=== PATIENT | male | born 1995 | race Caucasian/White ===

== ENCOUNTER 2017-10-14 17:03 | Emergency (ER) | payer SELFPAY ==
[2017-10-14] MEDS ORDERED: ONDANSETRON 4 MG/2 ML VIAL ONE (17:18)
[2017-10-14 17:37] VITALS: BP 109/69; PULSE 98; TEMP 97.6; BMI 22.1
--- NOTE | 2017-10-14 18:27 | PDOC ---
History of Present Illness - General Chief Complaint: Overdose Stated Complaint: Overdose Time Seen by Provider: 10/14/17 17:46 - History of Present Illness Initial Comments: 10/14/17 18:25 Patient is a 22 yo with a PMHx of polysubstance abuse (IV heroine, cocaine), IDDM, was brought in by ambulance for somnolence and tachycardia of 170 [place]. He injected himself with heroine and his brother became worried when he "became incoherent" and called 911. Patient did not require reversal with narcan. Patient has been injecting heroine since he was 15 years old and says he's currently in rehab. Patient denies LOC, dyspnea, chest pain, dizziness, abdominal pain, nausea and vomiting. Past History - Past Medical History Allergies/Adverse Reactions: Allergies Allergy/AdvReac Type Severity Reaction Status Date / Time No Known Allergies Allergy Verified 10/14/17 17:06 COPD: No - Suicide/Smoking/Psychosocial Hx Smoking History: Never smoked Hx Alcohol Use: No Drug/Substance Use Hx: Yes (heroine) Substance Use Type: Cocaine, Heroin Review of Systems - Review of Systems Constitutional: No: Chills, Diaphoresis, Fever HEENTM: No: Recent change in vision Respiratory: No: Cough, Shortness of Breath, Wheezing Cardiac (ROS): No: Chest Pain, Edema, Palpitations, Syncope ABD/GI: No: Diarrhea, Nausea : No: Burning, Dysuria Neurological: No: Headache, Numbness, Tremors *Physical Exam - Vital Signs Last Vital Signs Temp Pulse Resp BP Pulse Ox 97.6 F 98 H 18 109/69 10/14/17 17:14 10/14/17 17:14 10/14/17 17:14 10/14/17 17:14 - Physical Exam Comments: 10/14/17 18:53 General: patient in no acute distress, appears comfortable HEENT: oropharaynx clear without exudates CV: RRR, no murmurs, rubs or gallops Lungs: CTA b/l, no rales rhonchi or wheezing Abd: normoactive bowel sounds, nt, nd Ext: track melchor on b/l upper extremity, linear maculopapulo rash on left shoulder that extends down to left flank. B/l LE excoriations Medical Decision Making - Medical Decision Making 10/14/17 18:50 Patient is a 22 yo M with a history of polysubstance abuse (heroine, cocaine) presented to the ED after brother found him unconscious after using Heroine. Patient is not hypoxic and in not in respiratory distress. Tachycardia resolved. BGM 198 Hemodynamically stable 100% Sat on room air Will discharge patient under care of his mother. *DC/Admit/Observation/Transfer Diagnosis at time of Disposition: Heroin overdose Qualifiers: Encounter type: initial encounter Injury intent: undetermined intent Qualified Code(s): T40.1X4A - Poisoning by heroin, undetermined, initial encounter - Discharge Dispostion Disposition: HOME Admit: No - Referrals - Patient Instructions Printed Discharge Instructions: DI for Drug Overdose in Adults Additional Instructions: If you feel worsening of your symptoms please call your doctor. If it is an emergency, go to your nearest emergency department. - Post Discharge Activity
--- NOTE | 2017-10-14 18:44 | PDOC ---
Attending Attestation - Resident Resident Name: Josephine Ordonez - ED Attending Attestation I have performed the following: I have examined & evaluated the patient, The case was reviewed & discussed with the resident, I agree w/resident's findings & plan, Exceptions are as noted - HPI HPI: 10/14/17 19:13 22-year-old male with history of heroin abuse, insulin-dependent diabetes brought into the ER for somnolence after injecting IV heroin. Patient did not require reversal with Narcan prior to arrival. - Physicial Exam PE: 10/14/17 19:14 Patient is awake and alert, Ox3 nc, atr perrla (3mm) cta rrr + Numerous track melchor to the left upper extremity; - Medical Decision Making 10/14/17 19:12 Patient is a 22-year-old male with history of heroin abuse, insulin-dependent diabetes brought in by EMS for somnolence and tachycardia [place]. Patient did not require reversal with Narcan and has remained asymptomatic in the ER without evidence of respiratory depression. BGM is noted to be 198. Patient's initial heart rate of 170 resolved without any intervention and last heart rate was noted to be 108. Patient did not wish detox. Patient discharged to the care of his mother. <Goldy Roth - Last Filed: 10/14/17 19:12> - HPI HPI: 10/14/17 19:17 Pt is a 22 yo M with a PMHx of polysubstance abuse, IDDM who presents to the ED with AMS s/p heroin use. Patient's brother call EMS due to AMS. - Medical Decision Making 10/14/17 19:02 Documentation prepared by Keyana Nur, acting as medical equipment repair technician for Goldy Roth MD <Keyana Nur - Last Filed: 10/14/17 19:18>
--- NOTE | 2017-10-21 12:15 | EKG ---
Test Reason : Blood Pressure : / mmHG Vent. Rate : 108 BPM Atrial Rate : 108 BPM P-R Int : 124 ms QRS Dur : 084 ms QT Int : 328 ms P-R-T Axes : 074 047 043 degrees QTc Int : 439 ms POOR DATA QUALITY, INTERPRETATION MAY BE ADVERSELY AFFECTED SINUS TACHYCARDIA OTHERWISE NORMAL ECG NO PREVIOUS ECGS AVAILABLE Confirmed by STEPHENIE LARA MD ([id number]) on 10/21/2017 12:14:43 PM Referred By: Confirmed By:STEPHENIE LARA MD
== END 2017-10-14 19:14 | disposition home or self-care (01) ==
LOC: JER 17:03
DX: T40.1X4A Poisoning by heroin, undetermined, initial encounter (principal); T40.1X1A Poisoning by heroin, accidental (unintentional), initial encounter; Y93.9 Activity, unspecified; Y92.9 Unspecified place or not applicable; F19.10 Other psychoactive substance abuse, uncomplicated; E11.9 Type 2 diabetes mellitus without complications
CPT/HCPCS: 93005; 93010; 99283-25